=== PATIENT | female | born 1960 | race Caucasian/White ===

== ENCOUNTER 2018-04-14 14:05 | Outpatient (CLI) | payer OTHER | END 2018-04-14 14:06 | disposition home or self-care (01) | LOC: BICMAMMO 14:05 | PROVIDERS: ATTEND Internal Medicine Rheumatology | DX: M81.0 Age-related osteoporosis without current pathological fracture (principal) | CPT/HCPCS: 77080 ==

== ENCOUNTER 2018-05-17 12:52 | Outpatient (CLI) | payer OTHER | END 2018-05-17 12:53 | disposition home or self-care (01) | LOC: BICMAMMO 12:52 | PROVIDERS: ATTEND Family Medicine | DX: Z12.31 Encounter for screening mammogram for malignant neoplasm of breast (principal); Z85.3 Personal history of malignant neoplasm of breast; Z80.3 Family history of malignant neoplasm of breast | CPT/HCPCS: 77063; 77067 ==

== ENCOUNTER 2018-06-24 23:34 | Emergency (ER) | payer OTHER ==
[2018-06-25] MEDS ORDERED: Clindamycin/D5W 900 mg/50 ml Premix Bag ONE (00:38)
[2018-06-25 00:46] LABS: #Basophils 0.1 thou/uL (0.0-0.2); #Eosinphils 0.4 thou/uL (0.0-0.7); #Monocytes 0.9 thou/uL (0.11-0.59); #Neutrophils 4.8 thou/uL (1.40-6.50); %Basophils 1.2 % (0.0-1.0); %Eosinophils 5.2 % (0.0-10.0); %Lymphocytes 24.3 % (21.0-51.0); %Monocytes 11.3 % (0.0-10.0); %Neutrophils 58.1 % (42.0-75.0); Hemoglobin 12.7 g/dL (12.0-16.0); Mean Corpuscular HGB CONC 34.3 g/dL (32.0-36.0); Mean Corpuscular Volume 90.4 fL (78.0-98.0); Mean Platelet Volume 7.7 fL (7.4-10.4); Platelet Count 233 thou/uL (130-400); RBC Distribution Width 12.6 % (11.5-14.5); White Blood Cell (WBC) Count 8.2 thou/uL (4.8-10.8)
[2018-06-25 01:05] LABS: Glucose 100 mg/dL (70-105)
[2018-06-25 01:09] LABS: ALT (SGPT) 14 U/L (8-55); AST (SGOT) 16 U/L (5-34); Albumin 4.5 g/dL (3.5-5.0); Alkaline Phosphatase 106 U/L (40-150); Anion Gap 13 mmol/L (10-20); BUN (Urea Nitrogen) 14 mg/dL (9.8-20.1); Bilirubin, Total 0.7 mg/dL (0.2-1.2); Calc. Creatinine Clearance 0 mL/min (70-130); Calcium 8.9 mg/dL (7.8-10.44); Carbon Dioxide 25 mmol/L (22-29); Chloride 106 mmol/L (98-107); Estimated GFR-MDRD 45; Globulin 2.7 g/dL (2.4-3.5); Potassium 3.4 mmol/L (3.5-5.1); Protein, Total 7.2 g/dL (6.0-8.3); Sodium 141 mmol/L (136-145)
--- NOTE | 2018-06-25 10:26 | CT ---
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 States she first noticed an area of redness over her surgical scar from a previous breast augmentation. She developed a blister to this a ave that then ruptured and formed an ulcer. Possible abscess. HX of breast cancer and had a normal ma mmogram one month ago. TECHNIQUE: Axial computed tomographic angiography images of the chest with intravenous contrast using CT angiogr aphy protocol. Coronal reformatted images were created and reviewed. MIP reconstructed images were created and reviewed. COMPARISON: No relevant prior studies available. FINDINGS: Pulmonary arteries: Normal. No pulmonary emboli. Aorta: Normal. No aortic aneurysm. No aortic dissection. Lungs: Indeterminate 3 mm left apical pulmonary nodule. Once otherwise clear aside from mild subsegme ntal atelectasis/scarring. Pleural space: Normal. No pneumothorax. No pleural effusion. Heart: Normal. No cardiomegaly. No pericardial effusion. Mediastinum: Esophagus is unremarkable. Bones/joints: Unremarkable. No acute fracture. Soft tissues: Unilateral left breast implant. Lymph nodes: Unremarkable. No enlarged lymph nodes. IMPRESSION: No acute findings. Thank you for allowing us to participate in the care of your patient. Dictated and Authenticated by: Akshat Grimes MD 06/25/2018 1:42 AM Central Time ([place] & [place]) FINAL REPORT CT PULMONARY ANGIOGRAM WITH IV CONTRAST AND 3D POSTPROCESSING: I agree with the preliminary report given by Dr. Akshat Grimes of [facility]. POS: [facility]
[2018-06-25] MEDS ORDERED: ISOVUE-370 76%-LOCM 1 ML ONE (14:51)
== END 2018-06-25 02:45 | disposition home or self-care (01) ==
LOC: ERS 23:34
DX: N61.0 Mastitis without abscess (principal)
CPT/HCPCS: 36415; 71275; 80053; 85025; 87040; 96361; 96365; J3490

== ENCOUNTER 2018-10-13 09:05 | Outpatient (CLI) | payer OTHER ==
--- NOTE | 2018-10-13 09:25 | RAD ---
TWO VIEW CHEST: Comparison: 09-21-18 Indication: Dyspnea. FINDINGS: There is no consolidation, effusion, or pneumothorax. The cardiac silhouette is normal in size. The o sseous structures are intact. IMPRESSION: No focal consolidation. POS: [facility]
== END 2018-10-13 09:06 | disposition home or self-care (01) ==
LOC: RAD 09:05
PROVIDERS: ATTEND Internal Medicine
DX: R06.00 Dyspnea, unspecified (principal)
CPT/HCPCS: 71046

== ENCOUNTER 2020-08-02 08:15 | Outpatient (CLI) | payer BC ==
--- NOTE | 2020-08-02 09:02 | MMO ---
Bilateral MAMMO Bilat Screen [facility]. CLINICAL HISTORY: Patient is 60 years old and is seen for screening. The patient has no family history of breast cancer. The patient has a history of right mastopexy in 2004 - 1996 ALSO and left Mastectomy in 1996 - Malignancy GRADE 2. VIEWS: The views performed were: bilateral craniocaudal with tomosynthesis and bilateral mediolateral oblique with tomosynthesis. FILMS COMPARED: The present examination has been compared to prior imaging studies performed at [facility] on 05/17/2018, and at [facility] on 09/15/2013, 10/04/2015 and 02/05/2017. This study has been interpreted with the assistance of computer-aided detection. MAMMOGRAM FINDINGS: The breast is almost entirely fat. Benign appearing calcifications at site of previously noted fat necrosis. There are no suspicious masses, suspicious calcifications, or new areas of architectural distortion. IMPRESSION: THERE IS NO MAMMOGRAPHIC EVIDENCE OF MALIGNANCY. A ROUTINE FOLLOW-UP MAMMOGRAM IN 1 YEAR IS RECOMMENDED. THE RESULTS OF THIS EXAM WERE SENT TO THE PATIENT. ACR BI-RADS Category 2 - Benign finding MAMMOGRAPHY NOTE: 1. A negative mammogram report should not delay a biopsy if a dominant of clinically suspicious mass is present. 2. Approximately 10% to 15% of breast cancers are not detected by mammography. 3. Adenosis and dense breasts may obscure an underlying neoplasm. Reported by: ANNIE PONCE MD Electonically Signed: [id number]
== END 2020-08-02 08:16 | disposition home or self-care (01) ==
LOC: BICMAMMO 08:15
PROVIDERS: ATTEND Family Medicine
DX: Z12.31 Encounter for screening mammogram for malignant neoplasm of breast (principal); Z90.12 Acquired absence of left breast and nipple; Z85.3 Personal history of malignant neoplasm of breast
CPT/HCPCS: 77063; 77067

== ENCOUNTER 2020-09-25 13:28 | Outpatient (CLI) | payer BC ==
--- NOTE | 2020-09-25 14:38 | BD ---
EXAM: Bone densitometry using DEXA HISTORY: 50 yo female. Screening for postmenopausal osteoporosis FINDINGS: L1--bone mineral density 0.908 g/sq cm; T score -0.7 ; Z score 0.6 L2--bone mineral density 0.908 g/sq cm; T score -1.1 ; Z score 0.4 L3--bone mineral density 0.807 g/sq cm; T score -2.5 ; Z score -1.0 L4--bone mineral density 0.813 g/sq cm; T score -2.3 ; Z score -0.7 Total L1-L4--bone mineral density 0.856 g/sq cm; T score -1.7 ; Z score -0.2 Left femoral neck--bone mineral density0.570; T score -2.5 ; Z score -1.2 Total proximal left femur--bone mineral density 0.751; T score -1.6 ; Z score -0.6 IMPRESSION: Osteoporosis
== END 2020-09-25 13:29 | disposition home or self-care (01) ==
LOC: BICMAMMO 13:28
PROVIDERS: ATTEND Internal Medicine Rheumatology
DX: M81.0 Age-related osteoporosis without current pathological fracture (principal)
CPT/HCPCS: 77080

== ENCOUNTER 2022-02-17 12:50 | Outpatient (CLI) | payer BC | END 2022-02-17 12:51 | disposition home or self-care (01) | LOC: BICMAMMO 12:50 | PROVIDERS: ATTEND Nurse Practitioner Family | DX: Z12.31 Encounter for screening mammogram for malignant neoplasm of breast (principal); Z85.3 Personal history of malignant neoplasm of breast; Z80.3 Family history of malignant neoplasm of breast; Z98.890 Other specified postprocedural states | CPT/HCPCS: 77063; 77067 ==

== ENCOUNTER 2022-11-10 14:40 | Outpatient (CLI) | payer BC | END 2022-11-10 14:41 | disposition home or self-care (01) | LOC: RAD 14:40 | PROVIDERS: ATTEND Nurse Practitioner Family | DX: R06.02 Shortness of breath (principal) | CPT/HCPCS: 71046 ==

== ENCOUNTER 2023-03-23 15:33 | Outpatient (CLI) | payer BC | END 2023-03-23 15:34 | disposition home or self-care (01) | LOC: BICMAMMO 15:33 | PROVIDERS: ATTEND Nurse Practitioner Family | DX: Z12.31 Encounter for screening mammogram for malignant neoplasm of breast (principal) | CPT/HCPCS: 77063; 77067 ==

== ENCOUNTER 2023-08-06 17:00 | Outpatient (CLI) | payer BC | END 2023-08-06 17:01 | disposition home or self-care (01) | LOC: SLEEPLAB 17:00 | PROVIDERS: ATTEND Internal Medicine Critical Care Medicine | DX: G47.33 Obstructive sleep apnea (adult) (pediatric) (principal); F41.9 Anxiety disorder, unspecified; I48.91 Unspecified atrial fibrillation; R06.83 Snoring | CPT/HCPCS: 95810 ==